=== PATIENT | male | born 1980 | race African-American/Black ===

== ENCOUNTER 2020-01-22 10:30 | Outpatient (RCR) | payer OTHER ==
[~2020-01-22 10:30] MED LIST: CEPHALEXIN500 M1 PO; NAPROSYN500 MG PO; NORCO 325 MG-51 TAB PO
== END 2020-02-06 14:40 | disposition home or self-care (01) ==
LOC: WSC 10:30
DX: M54.5 Low back pain (principal)

== ENCOUNTER 2020-01-22 12:47 | Outpatient (RCR) | payer OTHER | END 2020-03-18 | disposition home or self-care (01) | LOC: WSOH | DX: M54.5 Low back pain (principal); F17.210 Nicotine dependence, cigarettes, uncomplicated; Y99.0 Civilian activity done for income or pay ==